=== PATIENT | male | born 1995 | race Caucasian/White ===

== ENCOUNTER 2018-05-16 11:24 | Emergency (ER) | payer OTHER ==
[~2018-05-16] VITALS: Ht 177.8 cm; Wt 77.1 kg
[~2018-05-16 11:24] MED LIST: MAGN296S9 PO
[2018-05-16 11:45] VITALS: BP 139/78
[2018-05-16] MEDS ORDERED: DIPHTH,PERTUSS(ACELL),TET TOX 0.5 ML DISP.SYRIN. VAX IM ONE (12:15)
[2018-05-16] MEDS ORDERED: HYDROcodone/APAP 5/325MG 1 TAB TABLET PO ONE (12:15)
[2018-05-16] MEDS ORDERED: FLUORESCEIN OPHTH TEST STRIP. OS ONE (12:30)
[2018-05-16] MEDS ORDERED: TETRACAINE 0.5% OPHTH SOLUTION 4ML BOTTLE. OS ONE (12:30)
[2018-05-16] MEDS ORDERED: ERYT1OIN6 OP (15:13)
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
== END 2018-05-16 15:36 | disposition home or self-care (01) ==
LOC: ER 11:24
DX: T26.52XA Corrosion of left eyelid and periocular area, initial encounter (principal); J45.909 Unspecified asthma, uncomplicated; X19.XXXA Contact with other heat and hot substances, initial encounter; Y93.89 Activity, other specified; Y92.69 Other specified industrial and construction area as the place of occurrence of the external cause; Y99.0 Civilian activity done for income or pay
CPT/HCPCS: 90471; 90715; 99283